=== PATIENT | female | born 1995 | race Caucasian/White ===

== ENCOUNTER 2024-07-14 10:52 | Outpatient (CLI) | payer OTHER, SELFPAY ==
--- NOTE | ~2024-07-14 | US_ITS ---
EXAMINATION: US OB <= 14 weeks fetus INDICATION: threatened miscarriage TECHNIQUE: Sonography of the pelvis was performed by transabdominal techniques. COMPARISON: None. RESULT: Uterus: 10.9 x 5.7 x 8.1 cm. Anteverted. Homogenous myometrium. Intrauterine gestational sac: Single present. Yolk sac: Not visualized. Embryo: Single present. [place] rump length: 4.3 cm, corresponding gestational age 11 weeks, 1 days. Gestational heart rate: present 171 bpm. Subgestational hematoma: Absent . Right ovary: Not visualized. No adnexal mass. Left ovary: 3.2 x 1.8 x 2.7 cm. Vascular flow is present. No adnexal mass. Pelvis free fluid: None. IMPRESSION: Single, live intrauterine gestation. tachycardia. Estimated Gestational Age: 11 weeks, 1 days by crown rump length. TYRONE by ultrasound 02/01/2025. Reviewed, dictated and finalized at location K. OPERATOR IMPRESSION: Single, live intrauterine gestation. tachycardia. Estimated Gestational Age: 11 weeks, 1 days by crown rump length. TYRONE by ultra sound 02/01/2025.
== END 2024-07-14 10:53 | disposition home or self-care (01) ==
LOC: MICIMG 10:55
PROVIDERS: Visit Provider Nurse Practitioner Women's Health
DX: O26.21 Pregnancy care for patient with recurrent pregnancy loss, first trimester (principal); Z3A.00 Weeks of gestation of pregnancy not specified
CPT/HCPCS: 76801

== ENCOUNTER 2024-11-24 07:52 | Outpatient (CLI) | payer OTHER, SELFPAY ==
--- NOTE | ~2024-11-24 | US_ITS ---
EXAMINATION: US OB follow up DATE: 11/24/2024 08:43 INDICATION: Size less than dates. TECHNIQUE: Real-time transabdominal obstetric ultrasound. FINDINGS: Comparison ultrasound dated 07/14/2024 There is a single living fetus in vertex presentation. The placenta is posterior without placenta pr evia. Cervical length 3.3 cm cardiac activity and movement is noted with a heart rate of 153 beats per minute. T he amniotic fluid volume is subjectively normal. The following biometric data were obtained: BPD: 76mm corresponds to gestational age 30 weeks 3 days. Head circumference: 279mm corresponds to gestational age 30 weeks 4 days. Abdominal circumference: 248mm corresponds to gestational age 29 weeks 0 days. Femur length: 57mm corresponds to gestational age 29 weeks 5 days. Estimated weight: 1401grams +/- 210grams, 18%.] IMPRESSION: 1. Single living fetus in presentation with an estimated gestational age of 30 weeks 1 days by init itial ultrasound. Appropriate interval growth. 2. Normal placenta. Reviewed, dictated and finalized at location B. IMPRESSION: 1. Single living fetus in presentation with an estimated gestational age of 3 0 weeks 1 days by inititial ultrasound. Appropriate interval growth. 2. Normal placenta.
== END 2024-11-24 07:53 | disposition home or self-care (01) ==
LOC: MICIMG 07:56
PROVIDERS: PCP Nurse Practitioner; Visit Provider Nurse Practitioner
DX: O36.5930 Maternal care for other known or suspected poor fetal growth, third trimester, not applicable or unspecified (principal); Z3A.00 Weeks of gestation of pregnancy not specified
CPT/HCPCS: 76816

== ENCOUNTER 2024-11-24 10:49 | Outpatient (CLI) | payer OTHER, SELFPAY ==
--- OUTSIDE RECORDS SUMMARY | 2024-11-24 10:53 | XMS_ITS | Clinical Summary ---
Author Organization [facility] Address [address] [place] [address] Phone Care Team Providers Care Coverage Specialist Name Role Phone Unavailable Primary Care Provider Unavailabl e Encounters Date Type Department Care Team Description 10/08/2024 2:30 PM CDT - 10/08/2024 11:59 PM CDT Hospital Encounter [facility] [address] [place] [id number] Sofia Hull MD Discharge Disposition: Home or Self Care 09/18/2024 External Device Data STL ABSTRACTION Provider, Abstract 09/18/2024 External Device Data STL ABSTRACTION Provider, Abstract 09/18/2024 External Device Data STL ABSTRACTION Provider, Abstract 09/13/2024 2:22 PM CDT - 09/13/2024 11:59 PM CDT Hospital Encounter [facility] [address] [place] [id number] Sofia Hull MD Discharge Disposition: Home or Self Care from Last 3 Months Social History Tobacco Use Types Packs/Day Years Used Date Smoking Tobacco: Never Assessed Comments Unknown Sex and Gender Information Value Date Recorded Sex Assigned at Not on file Legal Sex Female 9:26 AM CDT Gender Identity Not on file Sexual Orientation Not on file Plan of Treatment Health Maintenance Due Date Last Done Comments DTAP/TDAP/TD VACCINES (1 - Tdap) 12/01/2014 HEPATITIS B VACCINES (1 of 3 - 19+ 3-dose series) 12/01/2014 CERVICAL CANCER SCREENING 12/01/2016 HPV/Cotest (21-29) 12/01/2016 PAP SMEAR 12/01/2016 INFLUENZA VACCINE (#1) 2024 HPV VACCINES Aged Out No longer eligi ble based on patient's age to complete this topic Procedures Procedure Name Priority Date/Time Associated Diagnosis Comments US OB FOLLOW UP PER FETUS Routine 10/08/2024 3:12 PM CDT Family history of congenital deformity screening for malformation using ultrasonics US OB DETAIL SINGLE GEST Routine 09/13/2024 3:40 PM CDT Family history of congenital deformity screening for malformation using ultrasonics from Last 3 Months Results * US OB FOLLOW UP PER FETUS (10/08/2024 3:12 PM CDT) Anatomical Region Laterality Modality Pelvis Ultrasound 10/08/2024 2:52 PM CDT Narrative 10/10/2024 9:12 AM CDT STL FOLLOW UP ----- Pat. Name: SHARON GARCIA Study Date: 10/08/2024 2:52pm Pat. NO: [id number] Referring MD: SOFIA HULL MD Site: [facility] [employer] Operator: Tammy Rodriguez RDMS : 1995 Age: 28 ----- INDICATION ----- Screening Follow-Up Family History of Congenital Anomalies hydrocephalus prior preg Hypothyroidism levothyroxine CODING ----- Diagnoses Z3A.23: Weeks of gestation Z82.79: Family history of other congenital malformations, deformations and chromosomal abnormalities Z36.3: Encounter for screening for malformations Z3A.23: Weeks of gestation E03.9: Hypothyroidism, unspecified Z36.2: Encounter for other screening follow-up Procedures [id number]: Ultrasound, uterus, real time with image documentation, follow up, transabdominal approach per fetus HISTORY ----- OB History 2. Para 0 A1 MATERNAL ASSESSMENT ----- Physical Exam Weight 77 kg. BMI 31.09 kg/m METHOD ----- Transabdominal ultrasound examination ----- Pete . Number of fetuses: 1 DATING ----- GA by prior assessment 23 w + 3 d TYRONE by prior assessment: 02/01/2025 Ultrasound examination on: 10/08/2024 GA by U/S based upon: AC, BPD, EFW, Femur, HC GA by U/S 23 w + 1 d TYRONE by U/S: 02/03/2025 Method of dating: Restore dating from previous exam Assigned: based on stated TYRONE, selected on 09/13/2024 Assigned GA 23 w + 3 d Assigned TYRONE: 02/01/2025 BIOMETRY ----- BPD 57.5 mm 23w 4d 51% Hadlock OFD 75.2 mm 24w 6d 88% Lincoln HC 213.5 mm 23w 3d 33% Hadlock AC 176.7 mm 22w 4d 17% Hadlock Femur 40.5 mm 23w 1d 28% Hadlock HC / AC 1.21 85% Nicolaides Weight Calculation: EFW 544 g 22w 5d 20% Hadlock EFW (lb,oz) 1 lb 3 oz EFW by Hadlock ([id number]) Extremities / Bony Struc Biometry: FL / BPD 0.70 FL / HC 0.19 FL / AC 0.23 GENERAL EVALUATION ----- Cardiac activity present. FHR 148 bpm. movements: present. Presentation: cephalic Placenta: Placental site: posterior Umbilical cord: Cord vessels: 3 vessel cord Amniotic fluid: Amount of AF: normal amount. MVP 3.4 cm. KARINE 8.3 cm. Q1 0.0 cm, Q2 2.1 cm, Q3 2.8 cm, Q4 3.4 cm ANATOMY ----- The following structures appear normal: Head / Neck Cranium. Lateral ventricles. Choroid plexus. Midline falx. Cavum septi pellucidi. Cerebellum. Cisterna magna. Face Lips. Profile. Nose. Heart / Thorax 4-chamber view. RVOT view. LVOT view. 3-vessel view. Diaphragm. Abdomen Stomach. Kidneys. Bladder. GROWTH OVERVIEW ----- Exam date GA BPD (mm) HC (mm) AC (mm) FL (mm) HL (mm) EFW (g) 09/13/2024 19w 6d 44.8 36% 171.9 38% 137.5 23% 30.0 22% 28.8 35% 284 18% 10/08/2024 23w 3d 57.5 51% 213.5 33% 176.7 17% 40.5 28% 544 20% COMMENT ----- Patient's name and date of were verified by the dragline oiler prior to the exam IMPRESSION ----- 1. Single living fetus with a gestational age of 23w 3d, based on the reported clinical dates. 2. Current growth parameters are consistent with the stated EDC. The size is appropriate for gestational age at 20%percentile (544 g ). 3. Unremarkable limited anatomy noted. The previously suboptimally visualized anatomy (CSP, nose/lips, situs) appears grossly normal. The anatomic survey is now complete. 4. The amniotic fluid is normal for gestational age (MVP:3.4 cm). 5. Posterior placenta. No previa/not low-lying. Recommendations: - Further ultrasounds based on clinical indication. - Recommend interval third trimester growth and anatomy at 32 weeks. Thank you for allowing us to participate in the care of this patient. ADDENDUM ----- RETRIGGER Procedure Note Lovely Emery MD - 10/10/2024 STL FOLLOW UP ----- Pat. Name:RADHA, ANYAStudy Date:10/08/2024 2:52pm Pat. NO: [id number] MD:SOFIA HULL [facility]:Tammy BrownLaxmi BARCENAS :1995Age:28 ----- INDICATION ----- Screening Follow-Up Family History of Congenital Anomalies hydrocephalus priorpreg Hypothyroidism levothyroxine CODING ----- Diagnoses Z3A.23: Weeks of gestation Z82.79: Family history of other congenitalmalformations, deformations and chromosomal abnormalities Z36.3: Encounter for screening formalformations Z3A.23: Weeks of gestation E03.9: Hypothyroidism, unspecified Z36.2: Encounter for other screeningfollow-up Procedures [id number]: Ultrasound, uterus, real time withimage documentation, follow up, transabdominal approach per fetus HISTORY ----- OB History 2. Para 0 A1 MATERNAL ASSESSMENT ----- Physical Exam Weight 77 kg. BMI 31.09 kg/m METHOD ----- Transabdominal ultrasound examination ----- Pete . Number of fetuses: 1 DATING ----- GA by prior [id number] w + 3 d TYRONE by prior assessment:02/01/2025 Ultrasound examination on:10/08/2024 GA by U/S based upon:AC, BPD, EFW, Femur, HC GA by U/S23 w + 1 d TYRONE by U/S:02/03/2025 Method of dating:Restore dating from previous exam Assigned:based on stated TYRONE, selected on 09/13/2024 Assigned GA23 w + 3 d Assigned TYRONE:02/01/2025 BIOMETRY ----- BPD 57.5 mm 23w 4d 51%Hadlock OFD 75.2 mm 24w 6d 88%Lincoln HC 213.5 mm 23w 3d 33%Hadlock AC 176.7 mm 22w 4d 17%Hadlock Femur 40.5 mm 23w 1d 28%Hadlock HC / AC 1.21 85%Nicolaides Weight Calculation: EFW 544 g 22w 5d 20%Hadlock EFW (lb,oz) 1 lb 3 oz EFW by Hadlock ([id number]) Extremities / Bony Struc Biometry: FL / BPD 0.70 FL / HC 0.19 FL / AC 0.23 GENERAL EVALUATION ----- Cardiac activity present. FHR 148 bpm. movements: present.Presentation: cephalic Placenta: Placental site: posterior Umbilical cord: Cord vessels: 3 vessel cord Amniotic fluid: Amount of AF: normal amount. MVP 3.4 cm. KARINE 8.3 cm. Q10.0 cm, Q2 2.1 cm, Q3 2.8 cm, Q4 3.4 cm ANATOMY ----- The following structures appear normal: Head / Neck Cranium. Lateral ventricles. Choroid plexus.Midline falx. Cavum septi pellucidi. Cerebellum. Cisterna magna. Face Lips. Profile. Nose. Heart / Thorax 4-chamber view. RVOT view. LVOT view. 3-vesselview. Diaphragm. Abdomen Stomach. Kidneys. Bladder. GROWTH OVERVIEW ----- Exam date GA BPD (mm) HC (mm) AC (mm) FL(mm) HL (mm) EFW (g) 09/13/2024 19w 6d 44.8 36% 171.9 38% 137.5 23%30.0 22% 28.8 35% 284 18% 10/08/2024 23w 3d 57.5 51% 213.5 33% 176.7 17%40.5 28% 544 20% COMMENT ----- Patient's name and date of were verified by the dragline oiler prior tothe exam IMPRESSION ----- 1. Single living fetus with a gestational age of 23w 3d, based on thereported clinical dates. 2. Current growth parameters are consistent with the stated EDC. The fetalsize is appropriate for gestational age at 20%percentile (544 g ). 3. Unremarkable limited anatomy noted. The previously suboptimallyvisualized anatomy (CSP, nose/lips, situs) appears grossly normal. The anatomic survey is now complete. 4. The amniotic fluid is normal for gestational age (MVP:3.4 cm). 5. Posterior placenta. No previa/not low-lying. Recommendations: - Further ultrasounds based on clinical indication. - Recommend interval third trimester growth and anatomy at 32weeks. Thank you for allowing us to participate in the care of this patient. ADDENDUM ----- RETRIGGER us Sofia Hull MD US ORDERABLES Edited Re sult - Final * US OB DETAIL SINGLE GEST (09/13/2024 3:40 PM CDT) Anatomical Region Laterality Modality Pelvis Ultrasound 09/13/2024 2:27 PM CDT Narrative 09/13/2024 3:51 PM CDT STL COMP ----- Pat. Name: SHARON GARCIA Study Date: 09/13/2024 2:27pm Pat. NO: [id number] Referring MD: SOFIA HULL MD Site: [facility] [employer] [facility] Operator: Cesilia You RDMS : 1995 Age: 28 ----- INDICATION ----- Anatomy Survey no genetics Family History of Congenital Anomalies hydrocephalus prior preg CODING ----- Diagnoses Z3A.19: Weeks of gestation Z82.79: Family history of other congenital malformations, deformations and chromosomal abnormalities Z36.3: Encounter for screening for malformations Procedures [id number]: Ultrasound, uterus, real time with image documentation, and maternal evaluation plus detailed anatomic examination, transabdominal approach METHOD ----- Transabdominal ultrasound examination ----- Pete . Number of fetuses: 1 DATING ----- Method of dating: based on stated TYRONE GA by prior assessment 19 w + 6 d TYRONE by prior assessment: 02/01/2025 Ultrasound examination on: 09/13/2024 GA by U/S based upon: AC, BPD, EFW, Femur, HC GA by U/S 19 w + 3 d TYRONE by U/S: 02/04/2025 Assigned: based on stated TYRONE, selected on 09/13/2024 Assigned GA 19 w + 6 d Assigned TYRONE: 02/01/2025 BIOMETRY ----- BPD 44.8 mm 19w 4d 36% Hadlock OFD 60.8 mm 21w 0d 85% Lincoln HC 171.9 mm 19w 5d 38% Hadlock Cerebellum tr 19.9 mm 19w 6d 51% Hughes Nuchal fold 4.9 mm AC 137.5 mm 19w 1d 23% Hadlock Femur 30.0 mm 19w 2d 22% Hadlock Humerus 28.8 mm 19w 2d 35% Lincoln HC / AC 1.25 87% Nicolaides Weight Calculation: EFW 284 g 19w 1d 18% Hadlock EFW (lb,oz) 0 lb 10 oz EFW by Hadlock ([id number]) Head / Face / Neck Biometry: Outsewer 5.4 mm CM 4.8 mm 45% Nicolaides Outer IOD 30.0 mm 19w 3d 19% Lincoln Extremities / Bony Struc Biometry: FL / BPD 0.67 25% Hadlock FL / HC 0.17 6% Hadlock FL / AC 0.22 54% Hadlock GENERAL EVALUATION ----- Cardiac activity present. FHR 149 bpm. movements: present. Presentation: cephalic Placenta: Placental site: posterior Umbilical cord: Cord vessels: 3 vessel cord. Insertion site: placental insertion: normal Amniotic fluid: Amount of AF: normal amount. MVP 3.6 cm ANATOMY ----- The following structures appear normal: Head / Neck Cranium. Lateral ventricles. Choroid plexus. Midline falx. Cerebellum. Cisterna magna. Nuchal fold. Face Profile. Palate. Orbits. Heart / Thorax 4-chamber view. RVOT view. LVOT view. 3-vessel view. 8-oevdbd-yynyzez view. Aortic arch view. Ductal arch view. Superior vena cava. Inferior vena cava. High short axis view. Cardiac rhythm. Diaphragm. Abdomen Abdominal wall. Stomach. Kidneys. Bladder. Genitals. Spine Cervical spine. Thoracic spine. Lumbar spine. Sacral spine. Extremities / Arms. Right hand. Left hand. Legs. Right foot. Left foot. Skeleton The following structures could not be adequately visualized: Head / Neck Cavum septi pellucidi. Face Lips. Nose. Heart / Thorax other: situs suboptimal MATERNAL STRUCTURES ----- Cervix Visualized Approach - Transabdominal: Cervical length 38.8 mm Right Ovary Not visualized Left Ovary Not visualized GROWTH OVERVIEW ----- Exam date GA BPD (mm) HC (mm) AC (mm) FL (mm) HL (mm) EFW (g) 09/13/2024 19w 6d 44.8 36% 171.9 38% 137.5 23% 30.0 22% 28.8 35% 284 18% COMMENT ----- Patient's name and date of were verified by the dragline oiler before the exam IMPRESSION ----- IUP at 19w 6d AGA growth with EFW 284 g (18%) No major structural malformations are identified within the limits of ultrasound, however some views are suboptimal and thus incomplete including CSP, nose, lips, situs. No soft markers of aneuploidy are visualized. Normal amniotic fluid volume, MVP 3.6 cm Normal cervical length, 38.8 mm Placenta is posterior with no previa Recommendations: - Recommend growth and completion of anatomy in 4 weeks Procedure Note Haylie Broussard MD - 09/13/2024 STL COMP ----- Pat. Name:Girish GARCIA Date:09/13/2024 2:27pm Pat. NO: [id number] MD:SOFIA HULL [facility]:Cesilia You RDMS :1995Age:28 ----- INDICATION ----- Anatomy Survey no genetics Family History of Congenital Anomalies hydrocephalus priorpreg CODING ----- Diagnoses Z3A.19: Weeks of gestation Z82.79: Family history of other congenitalmalformations, deformations and chromosomal abnormalities Z36.3: [facility] [id number]: Ultrasound, uterus, real time withimage documentation, and maternal evaluation plus detailed anatomic examination,transabdominal approach METHOD ----- Transabdominal ultrasound examination ----- Pete . Number of fetuses: 1 DATING ----- Method of dating:based on stated TYRONE GA by prior [id number] w + 6 d TYRONE by prior assessment:02/01/2025 Ultrasound examination on:09/13/2024 GA by U/S based upon:AC, BPD, EFW, Femur, HC GA by U/S19 w + 3 d TYRONE by U/S:02/04/2025 Assigned:based on stated TYRONE, selected on 09/13/2024 Assigned GA19 w + 6 d Assigned TYRONE:02/01/2025 BIOMETRY ----- BPD 44.8 mm 19w 4d36% Hadlock OFD 60.8 mm 21w 0d85% Lincoln HC 171.9 mm 19w 5d38% Hadlock Cerebellum tr 19.9 mm 19w 6d51% Hughes Nuchal fold 4.9 mm AC 137.5 mm 19w 1d23% Hadlock Femur 30.0 mm 19w 2d22% Hadlock Humerus 28.8 mm 19w 2d35% Lincoln HC / AC 1.25 87%Nicolaides Weight Calculation: EFW 284 g 19w 1d 18%Hadlock EFW (lb,oz) 0 lb 10 oz EFW by Hadlock ([id number]) Head / Face / Neck Biometry: Outsewer 5.4 mm CM 4.8 mm 45%Nicolaides Outer IOD 30.0 mm 19w 3d 19%Lincoln Extremities / Bony Struc Biometry: FL / BPD 0.67 25%Hadlock FL / HC 0.17 6%Hadlock FL / AC 0.22 54%Hadlock GENERAL EVALUATION ----- Cardiac activity present. FHR 149 bpm. movements: present.Presentation: cephalic Placenta: Placental site: posterior Umbilical cord: Cord vessels: 3 vessel cord. Insertion site: placentalinsertion: normal Amniotic fluid: Amount of AF: normal amount. MVP 3.6 cm ANATOMY ----- The following structures appear normal: Head / Neck Cranium. Lateral ventricles. Choroid plexus.Midline falx. Cerebellum. Cisterna magna. Nuchal fold. Face Profile. Palate. Orbits. Heart / Thorax 4-chamber view. RVOT view. LVOT view. 3-vesselview. 8-cergsi-bbadpkn view. Aortic arch view. Ductal arch view. Superior vena cava. Inferior vena cava. Highshort axis view. Cardiac rhythm. Diaphragm. Abdomen Abdominal wall. Stomach. Kidneys. Bladder.Genitals. Spine Cervical spine. Thoracic spine. Lumbar spine.Sacral spine. Extremities / Arms. Right hand. Left hand. Legs. Right foot.Left foot. Skeleton The following structures could not be adequately visualized: Head / Neck Cavum septi pellucidi. Face Lips. Nose. Heart / Thorax other: situs suboptimal MATERNAL STRUCTURES ----- Cervix Visualized Approach - Transabdominal: Cervical length 38.8mm Right Ovary Not visualized Left Ovary Not visualized GROWTH OVERVIEW ----- Exam date GA BPD (mm) HC (mm) AC (mm) FL(mm) HL (mm) EFW (g) 09/13/2024 19w 6d 44.8 36% 171.9 38% 137.5 23%30.0 22% 28.8 35% 284 18% COMMENT ----- Patient's name and date of were verified by the dragline oiler beforethe exam IMPRESSION ----- IUP at 19w 6d AGA growth with EFW 284 g (18%) No major structural malformations are identified within the limitsof ultrasound, however some views are suboptimal and thus incomplete including CSP, nose, lips, situs. No softmarkers of aneuploidy are visualized. Normal amniotic fluid volume, MVP 3.6 cm Normal cervical length, 38.8 mm Placenta is posterior with no previa Recommendations: - Recommend growth and completion of anatomy in 4 weeks us Sofia Hull MD ORDERABLES Edited Re sult - Final from Last 3 Months Insurance
--- OUTSIDE RECORDS SUMMARY | 2024-11-24 10:53 | XMS_ITS | Referral Summary ---
Author Organization [facility] Address [address] [place] [address] Care Team Providers Care Ware Dresser Name Role Phone No, Physician Primary Care Provider [phone] Allergies No known active allergies Medications melatonin 5 mg tablet 5 mg Active Active Problems Problem Noted Date Diagnosed Date Bilateral wrist pain 08/22/2022 Preventative health care 08/16/2022 Assessment & Plan (08/16/2022 3:39 PM JEWELRY TECHNICIAN): Preventative health care discussed including routine vaccinations and age- appropriate screenings. Discussed continued importance of diet and physical activity. Reviewed emergency room notes can addition to initial encounter OBGYN note Medication reconciliation performed with patient. Medications, past medical history, surgical history, allergies, and family history reviewed. CBC, CMP, lipid panel ordered. Tentative plan for follow up in 1 year for annual examination. Request earlier follow-up if noting worsening palpitations. Palpitations 08/16/2022 Assessment & Plan (08/22/2022 9:31 PM CDT): Patient reporting complaints of intermittent palpitations with on essentially unremarkable cardiovascular examination. We will be ordering a Holter monitor in ordering a TSH and FT4 follow-up as scheduled. Immunizations Immunization Administration Dates Next Due Influenza, Unspecified 03/13/2022(Deferred: Apoorva ent Refused) Social History Tobacco Use Types Packs/Day Years Used Date Smoking Tobacco: Never Smokeless Tobacco: Never Alcohol Use Standard Drinks/Week Comments Not Currently 0 (1 standard drink = 0.6 oz pur e alcohol) AUDIT-C Answer Date Recorded Q1: How often do you have a drink containing alc ohol? 2-4 times a month 08/16/2022 Q2: How many drinks containi ng alcohol do you have on a typical day when you are drinking? 1 or 2 08/16/2022 Q3: How often do you have si x or more drinks on one occasion? Never 08/16/2022 PHQ-2 Answer Date Recorded PHQ-2 Total Score (If total score is 3 or more points, staff should administer the PHQ-9) 0 08/16/2022 Personal Safety Answer Date Recorded Have you ever been in or are you currently in a harmful physical or emotional relationship or is someone making you feel afraid or unsafe? Denies 02/27/2024 Comments Unknown Sex and Gender Information Value Date Recorded Sex Assigned at Not on file Legal Sex Female 2:54 PM JEWELRY TECHNICIAN Gender Identity Not on file Sexual Orientation Not on file Last Filed Vital Signs Vital Sign Reading Time Taken Comments Blood Pressure 138/90 02/27/2024 10:15 PM CDT Pulse 95 02/27/2024 10:15 PM CDT Temperature 36.9 C (98.4 F) 02/27/2024 5:16 PM CDT Respiratory Rate 18 02/27/2024 10:15 PM CDT Oxygen Saturation 100% 02/27/2024 10:15 PM CDT Inhaled Oxygen Concentration - - Weight 77.1 kg (170 lb) 02/27/2024 5:16 PM CDT Height 158 cm (5' 2.21) 08/16/2022 2:14 PM JEWELRY TECHNICIAN Body Mass Index 30.89 08/16/2022 2:14 PM JEWELRY TECHNICIAN Plan of Treatment Not on file Insurance [facility] CHOICE PLUS [id number] Care Teams Ware Dresser Relationship Specialty Start Date End Date No, Physician PCP - General 02/27/24
--- OUTSIDE RECORDS SUMMARY | 2024-11-24 10:53 | XMS_ITS | Clinical Summary ---
Author Organization [facility] Address [address] [place] [address] Care Team Providers Care Psychiatric Assistant Name Role Phone No, Physician Primary Care Provider [phone] Allergies No known active allergies Medications melatonin 5 mg tablet 5 mg Active Active Problems Problem Noted Date Diagnosed Date Bilateral wrist pain 08/22/2022 Preventative health care 08/16/2022 Assessment & Plan (08/16/2022 3:39 PM MANAGER CONTENT): Preventative health care discussed including routine vaccinations [...] Due Influenza, Unspecified 03/13/2022(Deferred: Apoorva ent Refused) Surgical History Surgery Date Site/Laterality Comments BRAIN SURGERY 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 DENTAL SURGERY Family History * Patient is adopted Medical History Relation Name Comments No Known Problems Father No Known Problems Mother Relation Name Status Comments Father Mother Social History Tobacco Use Types Packs/Day Years [...] on file Legal Sex Female 2:54 PM MANAGER CONTENT Gender Identity Not on file Sexual Orientation Not on file Obstetrics History Para Term AB IAB SAB Ectopic Multiple Livin g Live Births 1 Date Outcome GA Total Labor Labor/2nd/3rd Weight Sex Type Anes PTL Pilar A1 A5 Name Clin Last Filed Vital Signs Vital Sign Reading [...] 158 cm (5' 2.21) 08/16/2022 2:14 PM MANAGER CONTENT Body Mass Index 30.89 08/16/2022 2:14 PM MANAGER CONTENT Plan of Treatment Health Maintenance Due Date Last Done Comments Cervical Cancer Screening 1995 Hepatitis C Screening 1995 DTaP/Tdap/Td Vaccine (1 - Tdap) 12/01/2006 Varicella Vaccines (1 of 2 - 13+ 2-dose series) 12/01/2008 Hepatitis B Screening 12/01/2013 Depression Screening 08/17/2023 08/16/2022 Regular Well Visit/Exam 18-64 08/17/2023 08/16/2022 Influenza Vaccine (Season Ended) 2025 HPV Vaccines Aged Out No longer eligi ble based on patient's age to complete this topic Pneumococcal vaccine <65 Aged Out No longer eligible based on patient's age to complete this topic Insurance Care Teams Psychiatric Assistant Relationship Specialty Start Date End Date No, Physician PCP - General 02/27/24
[2024-11-24 11:12] LABS: Hemoglobin 11.1 g/dL (12.0-15.0); Mean Corpuscular HGB Conc 32.6 g/dl (32-36); Mean Corpuscular Volume 85.6 fl (80-100); Mean Platelet Volume 10.2 fl (7.4-10.4); Platelet Count Result 205 k/mm3 (150-375); Red Blood Count 3.97 M/mm3 (4.2-5.4); Red Cell Distribution Width 12.9 % (11.5-14.5); White Blood Count 8.3 K/mm3 (4.5-10.0)
[2024-11-24 11:22] LABS: Alanine Aminotransferase 19 U/L (6-35); Albumin Level 3.7 g/dL (3.5-5.1); Alkaline Phosphatase 82 U/L (38-126); Anion Gap 8 mmol/L (4-12); Aspartate Amino Transferase 27 U/L (14-36); Bilirubin,Total 0.2 mg/dL (0.2-1.3); Blood Urea Nitrogen 5 mg/dL (7-17); Calcium 9.8 mg/dL (8.4-10.2); Carbon Dioxide 22 mmol/L (22-30); Chloride 106 mmol/L (98-107); Estimated Glomerular Filt Rate > 60; Glucose 123 mg/dL (65-110); Lactate Dehydrogenase 160 U/L (120-246); Potassium 3.7 mmol/L (3.4-5.0); Sodium 136 mmol/L (137-145); Total Protein 6.9 g/dL (6.3-8.2); Uric Acid 4.1 mg/dL (2.5-7.5)
[2024-11-24 11:27] LABS: Partial Thromboplastin Time 27.2 Seconds (22.3-36.8)
== END 2024-11-24 10:50 | disposition home or self-care (01) ==
LOC: ANHLAB 10:51
PROVIDERS: Visit Provider Nurse Practitioner
DX: Z36.9 Encounter for antenatal screening, unspecified (principal)
CPT/HCPCS: 36415; 80053; 83615; 84550; 85027; 85730

== ENCOUNTER 2024-11-27 12:47 | Outpatient (CLI) | payer OTHER, SELFPAY ==
[2024-11-27 13:14] LABS: Collection Time Urine 24 HOURS
--- OUTSIDE RECORDS SUMMARY | 2024-11-27 13:15 | XMS_ITS | Clinical Summary ---
Author Organization [facility] Address [address] [place] [address] Care Team Providers Care Automotive Heavy Mechanic Name Role Phone No, Physician Primary Care Provider [phone] Allergies No known active allergies Medications melatonin 5 mg tablet 5 mg Active Active Problems Problem Noted Date Diagnosed Date Bilateral wrist pain 08/22/2022 Preventative health care 08/16/2022 Assessment & Plan (08/16/2022 3:39 PM DESIGN ENGINEER AGRICULTURAL EQUIPMENT): Preventative health care discussed including routine vaccinations [...] Site/Laterality Comments BRAIN SURGERY hydrocephalus - in [place]. As a baby. DENTAL SURGERY Family History [...] on file Legal Sex Female 2:54 PM DESIGN ENGINEER AGRICULTURAL EQUIPMENT Gender Identity Not on file Sexual Orientation [...] 158 cm (5' 2.21) 08/16/2022 2:14 PM DESIGN ENGINEER AGRICULTURAL EQUIPMENT Body Mass Index 30.89 08/16/2022 2:14 PM DESIGN ENGINEER AGRICULTURAL EQUIPMENT Plan of Treatment Health Maintenance Due Date [...] patient's age to complete this topic Insurance [facility] Address: [address] [address] [place] [address] [facility] Address: [address] [address] [place] [address] Care Teams Automotive Heavy Mechanic Relationship Specialty Start Date End Date No, Physician PCP - General 02/27/24
--- OUTSIDE RECORDS SUMMARY | 2024-11-27 13:15 | XMS_ITS | Clinical Summary ---
Author Organization [facility] Address [address] [place] [address] Phone Care Team Providers Care Balance Wheel Arm Burnisher Name Role Phone Unavailable Primary Care Provider Unavailabl e Encounters Date Type Department Care Team Description 10/08/2024 2:30 PM CDT - 10/08/2024 11:59 PM CDT Hospital Encounter [facility] [address] [place] [id number] Sofia Hull MD Discharge Disposition: Home or Self Care 09/18/2024 External Device Data STL ABSTRACTION Provider, Abstract 09/18/2024 External Device Data STL ABSTRACTION Provider, Abstract 09/18/2024 External Device Data STL ABSTRACTION Provider, Abstract 09/13/2024 2:22 PM CDT - 09/13/2024 11:59 PM CDT Hospital Encounter [facility] [address] [place] [phone] Sofia Hull MD Discharge Disposition: Home or [...] GARCIA Study Date: 10/08/2024 2:52pm Pat. NO: [id number] Referring MD: SOFIA HULL MD Site: [facility] Management Specialist: Tammy Rodriguez RDMS : 1995 Age: 28 ----- INDICATION ----- Screening Follow-Up Family History of Congenital Anomalies hydrocephalus prior preg Hypothyroidism levothyroxine CODING ----- Diagnoses Z3A.23: Weeks of gestation Z82.79: Family history of other congenital malformations, deformations and chromosomal abnormalities Z36.3: Encounter for screening for malformations Z3A.23: Weeks of gestation E03.9: Hypothyroidism, unspecified Z36.2: Encounter for other screening follow-up Procedures [id number]: Ultrasound, uterus, real time with image documentation, [...] 1 lb 3 oz EFW by Hadlock ([id number]) Extremities / Bony Struc Biometry: FL / [...] and date of were verified by the toll operator prior to the exam IMPRESSION ----- 1. [...] Pat. Name:RADHA, ANYAStudy Date:10/08/2024 2:52pm Pat. NO: [id number] MD:SOFIA HULL [facility]Tammy BrownLaxmi BARCENAS :1995Age:28 ----- INDICATION ----- Screening Follow-Up Family History of Congenital Anomalies hydrocephalus priorpreg Hypothyroidism levothyroxine CODING ----- Diagnoses Z3A.23: Weeks of gestation Z82.79: Family history of other congenitalmalformations, deformations and chromosomal abnormalities Z36.3: Encounter for screening formalformations Z3A.23: Weeks of gestation E03.9: Hypothyroidism, unspecified Z36.2: Encounter for other screeningfollow-up Procedures [id number]: Ultrasound, uterus, real time withimage documentation, follow up, transabdominal approach per fetus HISTORY ----- OB History 2. Para 0 A1 MATERNAL ASSESSMENT ----- Physical Exam Weight 77 kg. BMI 31.09 kg/m METHOD ----- Transabdominal ultrasound examination ----- Pete . Number of fetuses: 1 DATING ----- GA by prior [id number] w + 3 d TYRONE by prior [...] 1 lb 3 oz EFW by Hadlock ([id number]) Extremities / Bony Struc Biometry: FL / [...] and date of were verified by the toll operator prior tothe exam IMPRESSION ----- 1. Single [...] GARCIA Study Date: 09/13/2024 2:27pm Pat. NO: [id number] Referring MD: SOFIA HULL MD Site: [facility] Management Specialist: Cesilia You RDMS : 1995 Age: 28 ----- INDICATION ----- Anatomy Survey no genetics Family History of Congenital Anomalies hydrocephalus prior preg CODING ----- Diagnoses Z3A.19: Weeks of gestation Z82.79: Family history of other congenital malformations, deformations and chromosomal abnormalities Z36.3: Encounter for screening for malformations Procedures [id number]: Ultrasound, uterus, real time with image documentation, [...] 0 lb 10 oz EFW by Hadlock ([id number]) Head / Face / Neck Biometry: Screw Down 5.4 mm CM 4.8 mm 45% Nicolaides [...] view. RVOT view. LVOT view. 3-vessel view. 7-ggtour-zlaiomu view. Aortic arch view. Ductal arch view. [...] and date of were verified by the toll operator before the exam IMPRESSION ----- IUP at [...] Pat. Name:Girish GARCIA Date:09/13/2024 2:27pm Pat. NO: [id number] MD:SOFIA HULL MD [facility]Cesilia You RDMS :1995Age:28 ----- INDICATION ----- Anatomy Survey no genetics Family History of Congenital Anomalies hydrocephalus priorpreg CODING ----- Diagnoses Z3A.19: Weeks of gestation Z82.79: Family history of other congenitalmalformations, deformations and chromosomal abnormalities Z36.3: [id number]: Ultrasound, uterus, real time withimage documentation, and maternal evaluation plus detailed anatomic examination,transabdominal approach METHOD ----- Transabdominal ultrasound examination ----- Pete . Number of fetuses: 1 DATING ----- Method of dating:based on stated TYRONE GA by prior [id number] w + 6 d TYRONE by prior [...] 0 lb 10 oz EFW by Hadlock ([id number]) Head / Face / Neck Biometry: Screw Down 5.4 mm CM 4.8 mm 45%Nicolaides Outer [...] 4-chamber view. RVOT view. LVOT view. 3-vesselview. 7-qczbkz-rabbeyg view. Aortic arch view. Ductal arch view. [...] and date of were verified by the toll operator beforethe exam IMPRESSION ----- IUP at 19w [...]
--- OUTSIDE RECORDS SUMMARY | 2024-11-27 13:15 | XMS_ITS | Referral Summary ---
Author Organization [facility] Address [address] [place] [address] Care Team Providers Care Tool Designer Apprentice Name Role Phone No, Physician Primary Care Provider [phone] Allergies No known active allergies Medications melatonin 5 mg tablet 5 mg Active Active Problems Problem Noted Date Diagnosed Date Bilateral wrist pain 08/22/2022 Preventative health care 08/16/2022 Assessment & Plan (08/16/2022 3:39 PM BENCH INSPECTOR): Preventative health care discussed including routine vaccinations [...] on file Legal Sex Female 2:54 PM BENCH INSPECTOR Gender Identity Not on file Sexual Orientation [...] 158 cm (5' 2.21) 08/16/2022 2:14 PM BENCH INSPECTOR Body Mass Index 30.89 08/16/2022 2:14 PM BENCH INSPECTOR Plan of Treatment Not on file Insurance [facility] CHOICE PLUS [id number] Care Teams Tool Designer Apprentice Relationship Specialty Start Date End Date No, Physician PCP - General 02/27/24
--- OUTSIDE RECORDS SUMMARY | 2024-11-27 13:15 | XMS_ITS | Clinical Summary ---
Author Organization [facility] Address [address] [place] [address] Care Team Providers Care Tool And Die Maker Level Five Name Role Phone Unavailable Primary Care Provider Unavailabl e Allergies No known active allergies Medications Multiple Vitamin (MULTIVITAMIN ADULT OR) Take 1 tablet by mouth daily. Active levothyroxine (SYNTHROID) 50 MCG tablet Take 1 tablet (50 mcg total) by mouth daily. 5 Active Sbczvzwj-VjWdv-PY-D MARCOS w/o A ( + DHA OR) Take 1 tablet daily. Active ondansetron (ZOFRAN-ODT) 4 MG disintegrating tabletIndications:I nfluenza A Take 1 tablet (4 mg total) by mouth every 8 (eight) hours as needed. 10 tablet 5 Active Social History Tobacco Use Types Packs/Day Years Used Date Smoking Tobacco: Never Assessed Estimated Date of Delivery Comme nts Yes 02/01/2025 Sex and Gender Information Value Date Recorded Sex Assigned at Not on file Legal Sex Female 8:06 AM CDT Gender Identity Not on file Sexual Orientation Not on file Last Filed Vital Signs Vital Sign Reading Time Taken Comments Blood Pressure 98/65 07/17/2024 1:19 PM LONGWALL MACHINE OPERATOR HELPER Pulse 115 07/17/2024 1:19 PM LONGWALL MACHINE OPERATOR HELPER Temperature 38.7 C (101.6 F) 07/17/2024 1:19 PM LONGWALL MACHINE OPERATOR HELPER Respiratory Rate 16 07/17/2024 1:19 PM LONGWALL MACHINE OPERATOR HELPER Oxygen Saturation 98% 07/17/2024 1:19 PM LONGWALL MACHINE OPERATOR HELPER Inhaled Oxygen Concentration - - Weight 81.2 kg (179 lb) 07/17/2024 1:19 PM LONGWALL MACHINE OPERATOR HELPER Height 157.5 cm (5' 2) 07/17/2024 1:19 PM LONGWALL MACHINE OPERATOR HELPER Body Mass Index 32.74 07/17/2024 1:19 PM LONGWALL MACHINE OPERATOR HELPER Plan of Treatment Health Maintenance Due Date Last Done Comments Cervical Cancer Screening Pap Smear (Age 21 to 29) Every 3 Years 1995 Cervical Cancer Screening 1995 Annual Physical 12/01/1998 Hepatitis C 12/01/2013 DTaP, Tdap and Td Vaccines (7 - Td or Tdap) 04/21/2021 04/21/2011, 10/08/2002, 10/08/2001, Additional history exists COVID-19 Vaccine ( season) 2024 PHQ-2 (Physician [place]) 06/13/2024 Hepatitis B Vaccines Completed 07/31/2004, 01/24/2004, 10/08/2002 Meningococcal Vaccine Aged Out 12/16/2011 No cleo mami eligible based on patient's age to complete this topic HPV Vaccines Aged Out No longer eligi ble based on patient's age to complete this topic Meningococcal B Vaccine Aged Out No l onger eligible based on patient's age to complete this topic Pneumococcal Vaccine: Pediatrics (0 to 5 Years) and At-Risk Patients (6 to 49 Years) Aged Out No longer eligible based on patient's age to complete this topic RSV Immunization or 60+ Years (No Doses Required) Completed RSV Immunizations Under 20 Months Aged Out No longer eligible based on patient's age to complete this topic Insurance
[2024-11-27 14:07] LABS: Creatinine Urine 81.5 mg/dL; Patient Weight 184 Lbs; Serum Creat 0.59; Total Protein Urine Random 10 mg/dL
[2024-11-27 14:10] LABS: Estimated Glomerular Filt Rate > 60
[2024-11-27 14:23] LABS: Free T4 Free Thyroxine 0.73 ng/dL (0.78-2.19); Vitamin D 25 Hydroxy 41.5 ng/mL
[2024-11-27 14:34] LABS: Syphilis IgG/IgM Antibody Non-Reactive (Nonreactive)
[2024-11-27 14:36] LABS: HIV 1/2 Ab P24 Ag Result Negative (Negative)
[2024-11-27 15:36] LABS: Creatinine Clearance Urine 99.3 ml/min (75-125); Total Protein Urine 24 Hr 110 mg/24hr (28-141); Total Volume 24 Hour Urine 1100 ml
== END 2024-11-27 12:48 | disposition home or self-care (01) ==
LOC: ANHLAB 12:50
PROVIDERS: Visit Provider Obstetrics & Gynecology Gynecology
DX: O13.4 Gestational [pregnancy-induced] hypertension without significant proteinuria, complicating childbirth (principal); O99.280 Endocrine, nutritional and metabolic diseases complicating pregnancy, unspecified trimester; Z3A.00 Weeks of gestation of pregnancy not specified
CPT/HCPCS: 36415; 81050; 82306; 82565; 82575; 84156; 84439; 84443; 84550; 86593; 86703; G0432

== ENCOUNTER 2024-12-18 07:45 | Outpatient (CLI) | payer OTHER, SELFPAY ==
--- OUTSIDE RECORDS SUMMARY | 2024-12-18 07:49 | XMS_ITS | Clinical Summary ---
Author Organization [facility] Address [address] [place] [address] Care Team Providers Care Italian Lecturer Name Role Phone Unavailable Primary Care Provider Unavailabl e Allergies No known active allergies Medications Multiple Vitamin (MULTIVITAMIN ADULT OR) Take 1 tablet by mouth daily. Active levothyroxine (SYNTHROID) 50 MCG tablet Take 1 tablet (50 mcg total) by mouth daily. 5 Active Niujvymy-KtIyv-PK-D MARCOS w/o A ( + DHA OR) [...] Comments Blood Pressure 98/65 07/17/2024 1:19 PM CONVEYOR MAN Pulse 115 07/17/2024 1:19 PM CONVEYOR MAN Temperature 38.7 C (101.6 F) 07/17/2024 1:19 PM CONVEYOR MAN Respiratory Rate 16 07/17/2024 1:19 PM CONVEYOR MAN Oxygen Saturation 98% 07/17/2024 1:19 PM CONVEYOR MAN Inhaled Oxygen Concentration - - Weight 81.2 kg (179 lb) 07/17/2024 1:19 PM CONVEYOR MAN Height 157.5 cm (5' 2) 07/17/2024 1:19 PM CONVEYOR MAN Body Mass Index 32.74 07/17/2024 1:19 PM CONVEYOR MAN Plan of Treatment Health Maintenance Due Date Last Done Comments Cervical Cancer Screening Pap Smear (Age 21 to 29) Every 3 Years 1995 Cervical Cancer Screening 1995 Annual Physical 12/01/1998 Hepatitis C 12/01/2013 DTaP, Tdap and Td Vaccines (7 - Td or Tdap) 04/21/2021 04/21/2011, 10/08/2002, 10/08/2001, Additional history exists COVID-19 Vaccine ( season) 2024 PHQ-2 (Physician [place]) 06/13/2024 Hepatitis B Vaccines Completed 07/31/2004, 01/24/2004, [...]
--- OUTSIDE RECORDS SUMMARY | 2024-12-18 07:49 | XMS_ITS | Referral Summary ---
Author Organization [facility] Address [address] [place] [address] Care Team Providers Care Heavy Equipment Operating Engineer Name Role Phone No, Physician Primary Care Provider [phone] Allergies No known active allergies Medications melatonin 5 mg tablet 5 mg Active Active Problems Problem Noted Date Diagnosed Date Bilateral wrist pain 08/22/2022 Preventative health care 08/16/2022 Assessment & Plan (08/16/2022 3:39 PM PUBLICATIONS PRODUCTION SUPERVISOR): Preventative health care discussed including routine vaccinations [...] on file Legal Sex Female 2:54 PM PUBLICATIONS PRODUCTION SUPERVISOR Gender Identity Not on file Sexual Orientation [...] 158 cm (5' 2.21) 08/16/2022 2:14 PM PUBLICATIONS PRODUCTION SUPERVISOR Body Mass Index 30.89 08/16/2022 2:14 PM PUBLICATIONS PRODUCTION SUPERVISOR Plan of Treatment Not on file Insurance [facility] CHO[facility] PLUS [id number] Care Teams Heavy Equipment Operating Engineer Relationship Specialty Start Date End Date No, Physician PCP - General 02/27/24
--- OUTSIDE RECORDS SUMMARY | 2024-12-18 07:49 | XMS_ITS | Clinical Summary ---
Author Organization [facility] Address [address] [place] [address] Care Team Providers Care Naval Aircrewman Tactical Helicopter Name Role Phone No, Physician Primary Care Provider [phone] Allergies No known active allergies Medications melatonin 5 mg tablet 5 mg Active Active Problems Problem Noted Date Diagnosed Date Bilateral wrist pain 08/22/2022 Preventative health care 08/16/2022 Assessment & Plan (08/16/2022 3:39 PM BOILERMAKING SUPERVISOR): Preventative health care discussed including routine [...] Site/Laterality Comments BRAIN SURGERY hydrocephalus - in [place]. As a baby. DENTAL SURGERY Family History [...] on file Legal Sex Female 2:54 PM BOILERMAKING SUPERVISOR Gender Identity Not on file Sexual [...] 158 cm (5' 2.21) 08/16/2022 2:14 PM BOILERMAKING SUPERVISOR Body Mass Index 30.89 08/16/2022 2:14 PM BOILERMAKING SUPERVISOR Plan of Treatment Health Maintenance Due Date Last Done Comments Cervical Cancer Screening 1995 Hepatitis C Screening 1995 DTaP/Tdap/Td Vaccine (1 - Tdap) 12/01/2006 Varicella Vaccines (1 of 2 - 13+ 2-dose series) 12/01/2008 Hepatitis B Screening 12/01/2013 Depression Screening 08/17/2023 08/16/2022 Regular Well Visit/Exam 18-64 08/17/2023 08/16/2022 Influenza Vaccine (#1) 2025 HPV Vaccines Aged Out No longer eligi ble based on patient's age to complete this topic Pneumococcal vaccine <65 Aged Out No longer eligible based on patient's age to complete this topic Insurance [facility]/PPO Address: [address] [address] [place] [address] [facility] HMO/PPO Address: [address] [address] [place] [address] Care Teams Naval Aircrewman Tactical Helicopter Relationship Specialty Start Date End Date No, Physician PCP - General 02/27/24
--- OUTSIDE RECORDS SUMMARY | 2024-12-18 07:49 | XMS_ITS | Clinical Summary ---
Author Organization [facility] Address [address] [place] [address] Phone Care Team Providers Care Global Marketing Coordinator Name Role Phone Unavailable Primary Care Provider Unavailabl e Encounters Date Type Department Care Team Description 12/11/2024 External Device Data STL ABSTRACTION Provider, Abstract 10/08/2024 2:30 PM CDT - 10/08/2024 11:59 PM CDT Hospital Encounter [facility] [address] [place] [address] Sofia Hull MD Discharge Disposition: Home or Self Care 09/18/2024 External Device Data STL ABSTRACTION Provider, Abstract 09/18/2024 External Device Data STL ABSTRACTION Provider, Abstract 09/18/2024 External Device Data STL ABSTRACTION Provider, Abstract from Last 3 Months Social History Tobacco [...] 12/01/2016 PAP SMEAR 12/01/2016 INFLUENZA VACCINE (#1) 2025 HPV VACCINES Aged Out No longer eligi [...] GARCIA Study Date: 10/08/2024 2:52pm Pat. NO: [id number] Referring MD: SOFIA HULL MD Site: [place] Nozzle Operator: Tammy Rodriguez RDMS : 1995 Age: 28 ----- INDICATION ----- Screening Follow-Up Family History of Congenital Anomalies hydrocephalus prior preg Hypothyroidism levothyroxine CODING ----- Diagnoses Z3A.23: Weeks of gestation Z82.79: Family history of other congenital malformations, deformations and chromosomal abnormalities Z36.3: Encounter for screening for malformations Z3A.23: Weeks of gestation E03.9: Hypothyroidism, unspecified Z36.2: Encounter for other screening follow-up Procedures [id number]: Ultrasound, uterus, real time with image documentation, [...] 1 lb 3 oz EFW by Hadlock ([id number]) Extremities / Bony Struc Biometry: FL / [...] and date of were verified by the bailer operators supervisor prior to the exam IMPRESSION ----- 1. [...] - 10/10/2024 STL FOLLOW UP ----- Pat. Name:Girish GARCIA Date:10/08/2024 2:52pm Pat. NO: [id number] MD:SOFIA HULL MD [facility]Tammy Rodriguez RDMS :1995Age:28 ----- INDICATION ----- Screening Follow-Up Family History of Congenital Anomalies hydrocephalus priorpreg Hypothyroidism levothyroxine CODING ----- Diagnoses Z3A.23: Weeks of gestation Z82.79: Family history of other congenitalmalformations, deformations and chromosomal abnormalities Z36.3: Encounter for screening formalformations Z3A.23: Weeks of gestation E03.9: Hypothyroidism, unspecified Z36.2: Encounter for other screeningfollow-up Procedures 12668: Ultrasound, uterus, real time withimage documentation, follow up, transabdominal approach per fetus HISTORY ----- OB History 2. Para 0 A1 MATERNAL ASSESSMENT ----- Physical Exam Weight 77 kg. BMI 31.09 kg/m METHOD ----- Transabdominal ultrasound examination ----- Pete . Number of fetuses: 1 DATING ----- GA by prior [id number] w + 3 d TYRONE by prior [...] 1 lb 3 oz EFW by Hadlock ([id number]) Extremities / Bony Struc Biometry: FL / [...] and date of were verified by the bailer operators supervisor prior tothe exam IMPRESSION ----- 1. Single [...] care of this patient. ADDENDUM ----- RETRIGGER Sofia Hull MD ORDERABLES Edited Re sult - Final from Last 3 Months Insurance [employer] [id number]
[2024-12-18 09:52] LABS: Glucose 1 Hour PP 50gm Dose 171 mg/dL
== END 2024-12-18 07:46 | disposition home or self-care (01) ==
LOC: ANHLAB 07:47
PROVIDERS: Visit Provider Obstetrics & Gynecology Gynecology
DX: E03.9 Hypothyroidism, unspecified (principal); O13.4 Gestational [pregnancy-induced] hypertension without significant proteinuria, complicating childbirth; Z3A.00 Weeks of gestation of pregnancy not specified
CPT/HCPCS: 36415; 82947

== ENCOUNTER 2024-12-25 07:55 | Outpatient (CLI) | payer OTHER, SELFPAY ==
--- OUTSIDE RECORDS SUMMARY | 2024-12-25 08:01 | XMS_ITS | Clinical Summary ---
Author Organization [facility] Address [address] [place] [address] Phone Care Team Providers Care Customs Examiner Name Role Phone Unavailable Primary Care Provider Unavailabl e Encounters Date Type Department Care Team Description 12/11/2024 External Device Data STL ABSTRACTION Provider, Abstract 10/08/2024 2:30 PM CDT - 10/08/2024 11:59 PM CDT Hospital Encounter [facility] [place] [address] [place] [address] Sofia Hull MD Discharge Disposition: [...] GARCIA Study Date: 10/08/2024 2:52pm Pat. NO: [id number] Referring MD: SOFIA HULL MD Site: [place] Ota: Tammy Rodriguez RDMS : 1995 Age: 28 ----- INDICATION ----- Screening Follow-Up Family History of Congenital Anomalies hydrocephalus prior preg Hypothyroidism levothyroxine CODING ----- Diagnoses Z3A.23: Weeks of gestation Z82.79: Family history of other congenital malformations, deformations and chromosomal abnormalities Z36.3: Encounter for screening for malformations Z3A.23: Weeks of gestation E03.9: Hypothyroidism, unspecified Z36.2: Encounter for other screening follow-up Procedures [id number]: Ultrasound, uterus, real time with image documentation, [...] 1 lb 3 oz EFW by Hadlock ([id number]) Extremities / Bony Struc Biometry: FL / [...] and date of were verified by the home care music therapist prior to the exam IMPRESSION ----- 1. [...] Pat. Name:RADHA, ANYAStudy Date:10/08/2024 2:52pm Pat. NO: [id number] MD:SOFIA HULL MD [facility]am[facility] RDMS :1995Age:28 ----- INDICATION ----- Screening Follow-Up Family History of Congenital Anomalies hydrocephalus priorpreg Hypothyroidism levothyroxine CODING ----- Diagnoses Z3A.23: Weeks of gestation Z82.79: Family history of other congenitalmalformations, deformations and chromosomal abnormalities Z36.3: Encounter for screening formalformations Z3A.23: Weeks of gestation E03.9: Hypothyroidism, unspecified Z36.2: Encounter for other screeningfollow-up Procedures [id number]: Ultrasound, uterus, real time withimage documentation, follow up, transabdominal approach per fetus HISTORY ----- OB History 2. Para 0 A1 MATERNAL ASSESSMENT ----- Physical Exam Weight 77 kg. BMI 31.09 kg/m METHOD ----- Transabdominal ultrasound examination ----- Pete . Number of fetuses: 1 DATING ----- GA by prior [id number] w + 3 d TYRONE by prior [...] 1 lb 3 oz EFW by Hadlock ([id number]) Extremities / Bony Struc Biometry: FL / [...] and date of were verified by the home care music therapist prior tothe exam IMPRESSION ----- 1. Single [...] - Final from Last 3 Months Insurance Secured Mail [facility] [id number] [facility] Address: [facility] [id number] [place] [address]
--- OUTSIDE RECORDS SUMMARY | 2024-12-25 08:01 | XMS_ITS | Clinical Summary ---
Author Organization [facility] Address [address] [place] [address] Care Team Providers Care Straddle Truck Driver Name Role Phone No, Physician Primary Care Provider [phone] Allergies No known active allergies Medications melatonin 5 mg tablet 5 mg Active Active Problems Problem Noted Date Diagnosed Date Bilateral wrist pain 08/22/2022 Preventative health care 08/16/2022 Assessment & Plan (08/16/2022 3:39 PM VP COMMUNICATIONS): Preventative health care discussed including routine vaccinations [...] Site/Laterality Comments BRAIN SURGERY hydrocephalus - in [place]. As a baby. DENTAL SURGERY Family History [...] on file Legal Sex Female 2:54 PM VP COMMUNICATIONS Gender Identity Not on file Sexual Orientation [...] 158 cm (5' 2.21) 08/16/2022 2:14 PM VP COMMUNICATIONS Body Mass Index 30.89 08/16/2022 2:14 PM VP COMMUNICATIONS Plan of Treatment Health Maintenance Due Date [...] to complete this topic Insurance Care Teams Straddle Truck Driver Relationship Specialty Start Date End Date No, Physician PCP - General 02/27/24
--- OUTSIDE RECORDS SUMMARY | 2024-12-25 08:01 | XMS_ITS | Referral Summary ---
Author Organization [facility] Address [address] [place] [address] Care Team Providers Care Repairer Switchgear Name Role Phone No, Physician Primary Care Provider [phone] Allergies No known active allergies Medications melatonin 5 mg tablet 5 mg Active Active Problems Problem Noted Date Diagnosed Date Bilateral wrist pain 08/22/2022 Preventative health care 08/16/2022 Assessment & Plan (08/16/2022 3:39 PM FISHER CRAB): Preventative health care discussed including routine vaccinations [...] on file Legal Sex Female 2:54 PM FISHER CRAB Gender Identity Not on file Sexual Orientation [...] 158 cm (5' 2.21) 08/16/2022 2:14 PM FISHER CRAB Body Mass Index 30.89 08/16/2022 2:14 PM FISHER CRAB Plan of Treatment Not on file Insurance [facility] Address: [address] [place] [address] [facility] Address: [address] [address] [place] [address] [id number] Care Teams Repairer Switchgear Relationship Specialty Start Date End Date No, Physician PCP - General 02/27/24
--- OUTSIDE RECORDS SUMMARY | 2024-12-25 08:01 | XMS_ITS | Clinical Summary ---
Author Organization [facility] Address [address] [place] [address] Care Team Providers Care Spool Cleaner Name Role Phone Unavailable Primary Care Provider Unavailabl e Allergies No known active allergies Medications Multiple Vitamin (MULTIVITAMIN ADULT OR) Take 1 tablet by mouth daily. Active levothyroxine (SYNTHROID) 50 MCG tablet Take 1 tablet (50 mcg total) by mouth daily. 5 Active Zuqftbmj-[id number]-LU-D MARCOS w/o A ( + DHA OR) [...] Comments Blood Pressure 98/65 07/17/2024 1:19 PM HUMANITIES DEPARTMENT CHAIR Pulse 115 07/17/2024 1:19 PM HUMANITIES DEPARTMENT CHAIR Temperature 38.7 C (101.6 F) 07/17/2024 1:19 PM HUMANITIES DEPARTMENT CHAIR Respiratory Rate 16 07/17/2024 1:19 PM HUMANITIES DEPARTMENT CHAIR Oxygen Saturation 98% 07/17/2024 1:19 PM HUMANITIES DEPARTMENT CHAIR Inhaled Oxygen Concentration - - Weight 81.2 kg (179 lb) 07/17/2024 1:19 PM HUMANITIES DEPARTMENT CHAIR Height 157.5 cm (5' 2) 07/17/2024 1:19 PM HUMANITIES DEPARTMENT CHAIR Body Mass Index 32.74 07/17/2024 1:19 PM HUMANITIES DEPARTMENT CHAIR Plan of Treatment Health Maintenance Due Date Last Done Comments Cervical Cancer Screening Pap Smear (Age 21 to 29) Every 3 Years 1995 Cervical Cancer Screening 1995 Annual Physical 12/01/1998 Hepatitis C 12/01/2013 DTaP, Tdap and Td Vaccines (7 - Td or Tdap) 04/21/2021 04/21/2011, 10/08/2002, 10/08/2001, Additional history exists COVID-19 Vaccine ( season) 2024 PHQ-2 (Physician [place]) 06/13/2024 Hepatitis B Vaccines Completed 07/31/2004, 01/24/2004, [...] patient's age to complete [place] [id number]
[2024-12-25 08:22] LABS: Glucose Fasting Gestational 88 mg/dL (>/=95)
[2024-12-25 10:27] LABS: Glucose 1 Hour Gest 174 mg/dL (>/=180)
[2024-12-25 11:01] LABS: Glucose 2 Hour Gest 173 mg/dL (>/= 155)
[2024-12-25 12:15] LABS: Glucose 3 Hour Gest 144 mg/dL (>/=140)
== END 2024-12-25 07:56 | disposition home or self-care (01) ==
LOC: ANHLAB 07:56
PROVIDERS: Visit Provider Obstetrics & Gynecology Gynecology
DX: Z34.03 Encounter for supervision of normal first pregnancy, third trimester (principal)
CPT/HCPCS: 36415; 82951; 82952

== ENCOUNTER 2025-01-29 05:58 | Inpatient (IN) | payer OTHER, SELFPAY ==
[2025-01-29] VITALS (122 sets, daily range): BP systolic 92–145; BP diastolic 48–93; PULSE 68–135; RESP 16; TEMP 36.1–36.8; O2SAT 92–100; BMI 33.5
--- OUTSIDE RECORDS SUMMARY | 2025-01-29 06:01 | XMS_ITS | Clinical Summary ---
Author Organization [facility] Address [address] [place] [address] Phone Care Team Providers Care Rn Procedure Name Role Phone Unavailable Primary Care Provider Unavailabl e Encounters Date Type Department Care Team Description 01/16/2025 External Device Data [facility] ABSTRACTION Provider, Abstract 01/15/2025 External Device Data [facility] ABSTRACTION Provider, Abstract 12/11/2024 External Device Data [facility] ABSTRACTION Provider, [...] Health Maintenance Due Date Last Done Comments HPV VACCINES (1 - 3-dose series) 12/01/2010 DTAP/TDAP/TD VACCINES (1 - Tdap) 12/01/2014 HEPATITIS B VACCINES (1 of 3 - 19+ 3-dose series) 11/12 CERVICAL CANCER SCREENING 12/01/2016 HPV/Cotest (21-29) 12/01/2016 PAP SMEAR 12/01/2016 INFLUENZA VACCINE (#1) 2025 Insurance [employer] [id number] Member Subscriber Plan / Payer (Ef fective 2024-Present) Name:Vanessa Velazquez Relation to Subscriber:Self Name:Vanessa Velazquez Payer ID:[id number] (NAIC) Type:HMO Address: [facility] [address] [place] [id number]
--- OUTSIDE RECORDS SUMMARY | 2025-01-29 06:01 | XMS_ITS | Clinical Summary ---
Author Organization [facility] Address [address] [place] [address] Care Team Providers Care Environmental Engineering Assistant Name Role Phone No, Physician Primary Care Provider [phone] Allergies No known active allergies Medications melatonin 5 mg tablet 5 mg Active Active Problems Problem Noted Date Diagnosed Date Bilateral wrist pain 08/22/2022 Preventative health care 08/16/2022 Assessment & Plan (08/16/2022 3:39 PM MEDICAL DRIVER): Preventative health care discussed including routine vaccinations [...] Site/Laterality Comments BRAIN SURGERY hydrocephalus - in [place]. As a baby. DENTAL SURGERY Family History [...] on file Legal Sex Female 2:54 PM MEDICAL DRIVER Gender Identity Not on file Sexual Orientation [...] 158 cm (5' 2.21) 08/16/2022 2:14 PM MEDICAL DRIVER Body Mass Index 30.89 08/16/2022 2:14 PM MEDICAL DRIVER Plan of Treatment Health Maintenance Due Date Last Done Comments Cervical Cancer Screening 1995 Hepatitis C Screening 1995 DTaP/Tdap/Td Vaccine (1 - Tdap) 12/01/2006 Varicella Vaccines (1 of 2 - 13+ 2-dose series) 12/01/2008 Hepatitis B Screening 12/01/2013 HPV Vaccines (1 - 3-dose SCD M series) 12/01/2022 Depression Screening 08/17/2023 08/16/2022 Regular Well Visit/Exam 18-64 08/17/2023 08/16/2022 Influenza Vaccine (#1) 2025 Pneumococcal vaccine <65 Aged Out No longer eligible based on patient's age to complete this topic Insurance [facility] HMO/PPO Address: [address] [address] [place] [address] [facility]/PP[facility] Address: [address] [address] [place] [address] [address] [place] [phone] Care Teams Environmental Engineering Assistant Relationship Specialty Start Date End Date No, Physician PCP - General 02/27/24
--- NOTE | 2025-01-29 06:36 | LDADM ---
This patient, Vanessa Velazquez, was admitted to Labor/Delivery/Recovery 102 on 01/29/25 at 05:58. Plans for labor, pain management and were discussed with patient. Patient/family oriented to hospital policies and general routines including ID bracelet, bed and alarms, visiting hours, pain management, procedures, bathroom and other care routines, personal items, smoking policy, room service/diet and guest tray routines, security routines, and visiting hours. Patient/Family are encouraged to report perceived risks to care and to ask questions if they do not understand what they are told or what they should do. See OBIX for further documentation.
[2025-01-29] MEDS: LACTATED RINGERS 1,000 ML 125 ML IV CONT ×2 (07:15→13:20)
[2025-01-29] MEDS: OXYTOCIN 30 UNITS/NS 500 ML 30 UNITS/500 ML BAG 6 UNITS IV CONT (07:15)
[2025-01-29 07:26] LABS: Hematocrit 31.8 % (37.0-47.0); Hemoglobin 10.2 g/dL (12.0-15.0); Immature Granulocyte Percent A 0.6 % (0-0.5); Lymphocytes Absolute Auto 1.02 K/mm3 (0.9-3.2); Mean Corpuscular HGB Conc 32.1 g/dl (32-36); Mean Corpuscular Hemoglobin 25.8 pg (26-34); Mean Corpuscular Volume 80.3 fl (80-100); Nucleated Red Blood Cells Absolute Auto 0.000 K/mm3 (0.0-0.012); Nucleated Red Blood Cells Perc 0.0 % (0.0-0.2); Platelet Count Result 193 k/mm3 (150-375); Red Blood Count 3.96 M/mm3 (4.2-5.4); White Blood Count 6.9 K/mm3 (4.5-10.0)
--- NOTE | 2025-01-29 07:50 | WPDOBADMIT ---
Obstetrics - Admit Note Admission Note: record reviewed. No pertinent additions to the history and/or any subsequent changes in the physical findings that are not consistent with the expected course of the were found. Additions to the history and/or subsequent changes in the physical findings follow. Here for MIL for GDM. Uncertain diabetes control due to only having one week of accucheck readings. Cervix 2/50/-2 anterior. AROM with clear fluid. FHTs category I. Pitocin per protocol.
[2025-01-29 08:31] LABS: Syphilis IgG/IgM Antibody Non-Reactive (Nonreactive)
[2025-01-29] MEDS: fentaNYL CITRATE INJ (*CRX) 100 MCG/2 ML VIAL 50 MCG IV PUSH ×2 (12:25→13:48)
--- NOTE | 2025-01-29 14:11 | WPDANESEPPF ---
Anes - Initial Pre Proc Eval Procedure: labor epidural Date/Time: 01/29/25 14:11 Surgeon: Sofia Hull MD Pre Op Diagnosis: labor pain Pre Op Diagnosis: IOL Patient Data Age: 29 Gender: F Height: 1.6 m Weight: 86 kg Last Vital Signs Temp 36.3 C L 01/29/25 12:00 Pulse 95 01/29/25 14:09 BP 136/67 01/29/25 14:09 Pulse Ox 100 01/29/25 14:07 O2 Del Method Room Air 01/29/25 06:35 Allergies Allergy/AdvReac Type Severity Reaction Status Date / Time No Known Allergies Allergy Verified 01/05/25 14:50 Home Medications ?Medication ?Instructions ?Recorded ?Confirmed ?Type levothyroxine 75 mcg tablet 75 mcg PO ONCE 01/05/25 01/29/25 History (Euthyrox) vit no.95-ferrous 1 tablet PO DAILY 01/05/25 01/29/25 History fumarate 28 mg-folic acid 800 mcg tablet () vitamin D3 20 mcg-vit K2 180 tablet PO 01/05/25 History mcg-calcium fructoborate 216 mg tablet Laboratory Tests 01/29/25 01/29/25 01/29/25 06:41 07:05 10:41 WBC 6.9 K/mm3 (4.5-10.0) RBC 3.96 L M/mm3 (4.2-5.4) Hgb 10.2 L g/dL (12.0-15.0) Hct 31.8 L % (37.0-47.0) MCV 80.3 fl (80-100) MCH 25.8 L pg (26-34) MCHC 32.1 g/dl (32-36) RDW 14.3 % (11.5-14.5) Plt Count 193 k/mm3 (150-375) MPV 11.2 H fl (7.4-10.4) Immature Gran % (Auto) 0.6 H % (0-0.5) Neut % (Auto) 76.1 H % (45.5-73.1) Lymph % (Auto) 14.8 L % (18.3-44.2) [place] % (Auto) 8.1 % (2.6-8.5) Eos % (Auto) 0.3 % (0-4.4) Baso % (Auto) 0.1 L % (0.2-1.2) Lymph # (Auto) 1.02 K/mm3 (0.9-3.2) [place] # (Auto) 0.6 K/mm3 (0.1-0.6) Eos # (Auto) 0.0 K/mm3 (0-0.3) Baso # (Auto) 0.0 K/mm3 (0.0-0.1) Abs Immat Gran (auto) 0.04 H K/mm3 (0.00-0.031) Absolute Neuts (auto) 5.3 K/mm3 (1.3-6.7) Absolute Nucleated RBC 0.000 K/mm3 (0.0-0.012) Nucleated RBC % 0.0 % (0.0-0.2) POC Capillary Glucose 81 mg/dl 112 H mg/dl (65-105) (65-105) Syphilis IgG/IgM Ab Non-reactive (Nonreactive) Blood Type O Positive Antibody Screen Negative Patient hx anesthesia problems: none Family hx anesthesia problems: none Results Review: All pre-operative results and documents have been reviewed as part of the pre-operative evaluation. [facility] Past Medical History Medical History (Updated 01/29/25 @ 14:11 by Kojo Velez DO) PIH ( induced hypertension) Surgical History Surgical History (Updated 01/29/25 @ 14:11 by Kojo Velez DO) S/P MERCHANDISE CLERK shunt as baby Social History Social History Smoking status: Never smoker Second hand tobacco smoke exposure: No Substance use: never Lack of Transportation: No Lack of Food: Never True Current Housing: I Have Housing Concerned About Future Housing: No Difficulty Paying Gas/Electric Bills: No Difficulty Paying for Meds: No Currently Unemployed: No Education: High School Diploma/GED Difficulty w/ Childcare or Family Care: No Spiritual care concerns: No Anes - Eval Final PreProcedure Day of Procedure 01/29/25 14:11 Patient weight: obese Neurological: alert and oriented ASA classification: III Emergent: no Anesthetic plan: proceed Anesthesia type and monitoring: regional epidural and standard monitoring Results Review: All pre-operative results and documents have been reviewed as part of the pre-operative evaluation. Informed Consent: The patient's anesthetic plan and its attendant risks and benefits were discussed with the patient/family/POA. Questions were solicited and answers provided to the satisfaction of the patient/family/POA.
[2025-01-29] MEDS: OXYTOCIN 30 UNITS/NS 500 ML 30 UNITS/500 ML BAG 125 UNITS IV CONT (16:31)
--- NOTE | 2025-01-29 17:35 | PC.NURSE ---
Nursery RN requests assistance with latching baby. Mom has fed for 8-10 minutes on the right breast. Baby is alert and active but fussy. Mom's left nipple is inverted, but it will irving with stimulation. The nipple retracts with breast compression. We worked to latch baby to the breast for several minutes. We tried cradle, cross cradle, and laid back positioning. Baby made good effort to latch but was quick to cry and hard to settle. Mom would like to take a break for now and do skin to skin with baby. She is encouraged to attempt again if he begins searching for the breast. Feeding cues discussed. Primary RN updated.
[2025-01-29] MEDS: BENZOCAINE 20% AER SPR (*SP) 56 GM CAN 1 SPRAY TOPICAL (19:14)
[2025-01-29] MEDS: WITCH HAZEL 40 PADS 1 PAD TOPICAL (19:14)
--- NOTE | 2025-01-29 19:35 | OBPPTRN ---
Patient transferred to post room # 288 via wheelchair. Support person present. Oriented to unit, room, information board, rooming in, admission packet and security measures. Patient verbalizes understanding.
[2025-01-30 05:09] LABS: Hematocrit 27.4 % (37.0-47.0); Hemoglobin 8.6 g/dL (12.0-15.0)
--- NOTE | 2025-01-30 07:31 | P.PNOB_ITS ---
OB - PN: Subj Subjective Date/time seen: 01/30/25 07:31 Patient comments: no complaints and pain well controlled baby status: doing well and nursing well OB - PN: Obj Data Labs 01/30/25 03:56 Labs: Laboratory Results - last 24 hr 01/29/25 01/29/25 01/30/25 06:41 10:41 03:56 Hgb 8.6 L Hct 27.4 L POC Capillary Glucose 112 H Syphilis IgG/IgM Ab Non-reactive Blood Type O Positive Antibody Screen Negative OB - PN A/P Plan day: 1 Plan: routine care Time Spent With Patient Time: Total time spent is greater than 50% in coordination of care (as documented) at patient's floor/unit and/or counseling patient: Exam 2 : Bimanual exam- vagina & uterus: other (Uterus firm, nt @U)
[2025-01-30 07:35] VITALS: BP 140/86; PULSE 100; RESP 16; TEMP 37.3; O2SAT 98
[2025-01-30] MEDS: DOCUSATE SODIUM 100 MG CAPSULE PO ×2 (08:00→17:33)
[2025-01-30] MEDS: MULTIVIT/MIN/PREN/FOL AC/IRON TABLET 1 TAB PO (08:00)
[2025-01-30] MEDS: IBUPROFEN 600 MG TABLET PO ×2 (10:18→20:08)
[2025-01-30 11:54] VITALS: BP 123/83; PULSE 92; RESP 18; TEMP 37.2; O2SAT 98
[2025-01-30 20:00] VITALS: BP 123/84; PULSE 100; RESP 16; TEMP 36.8; O2SAT 100
[2025-01-30] MEDS: ACETAMINOPHEN 325 MG TABLET 650 MG PO (20:08)
[2025-01-31 07:35] VITALS: BP 121/85; PULSE 78; RESP 18; TEMP 37.1; O2SAT 99
--- NOTE | 2025-01-31 07:55 | P.PNOB_ITS ---
OB - PN: Subj Subjective Date/time seen: 01/31/25 07:55 Patient comments: no complaints, pain well controlled and other (Plans oc's) baby status: doing well OB - PN: Obj Data Labs 01/30/25 03:56 OB - PN A/P Plan day: 2 Plan: routine care and discharge home Time Spent With Patient Time: Total time spent is greater than 50% in coordination of care (as documented) at patient's floor/unit and/or counseling patient: Exam 2 : Bimanual exam- vagina & uterus: other (Uterus firm, nt @U)
--- NOTE | 2025-01-31 07:56 | P.DS_ITS ---
DS: Admitting Diagnosis Discharge Date 01/31/25 Admitting Diagnosis IUP 39 wks for MIL GDM uncontrolled DS: Discharge Diagnosis Discharge Diagnosis (1) (normal spontaneous vaginal delivery): Code(s): O80 - Encounter for full-term uncomplicated delivery Status: Acute OB - DS: Summary OB Procedures : Ultrasound OB Procedures Intrapartum: Spontaneous Vag Delivery OB Procedures: : None Peripartum Data Infant Delivery Method: Natural Vaginal Laceration Description: Periurethral and Perineal - 2nd Degree complications: none Status at Discharge Functional status at discharge: independent ambulation Overall status at discharge: patient is progressing back to baseline Time Spent with Patient Time attestation: Total time spent providing and/or coordinating discharge services: Discharge Plan Discharge Attending physician on discharge: Sofia Hull Discharging Clinician: Sofia Hull Anticipated Discharge Date/Time: 01/31/25 07:57 Patient Disposition: Home Activity: may shower and may drive after 2 weeks Diet: regular Patient Instructions: Antibiotic Form Patient Language: Latvian Stand Alone Forms: General Discharge Information Follow-up/Referrals: Sofia Hull MD [Physician, THERAPY COORDINATOR] - 6 Weeks Discharge Medications: New norethindrone (contraceptive) 0.35 mg tablet 0.35 mg PO DAILY Qty: 84 3RF Continued vit D3-vit K2-ca fructoborate 20 mcg-180 mcg- 216 mg tablet PO PNV no.95-ferrous fumarate-FA [] 28 mg iron- 800 mcg tablet 1 tablet PO DAILY levothyroxine [Euthyrox] 75 mcg tablet 75 mcg PO ONCE Date of admission: 01/29/25 05:58 Primary Care Provider: PHYSICIAN,MECHANICAL ENGINEERING SPECIALIST Admitting Provider: Sofia Hull Attending physician on admission: Sofia Hull Condition: Stable
--- NOTE | 2025-01-31 07:59 | P.PCNOB_ITS ---
OB - Vaginal Delivery Note Procedure Delivery date: 01/31/25 Events: Gestational Diabetes Induction method: AROM and Per Pitocin Protocol Delivery monitor: External FHT and External Uterine Route of delivery: Episiotomy description: None Laceration Description: Periurethral and Perineal - 2nd Degree Delivery repair: vicryl (3-0) Specimen: No Quantitative Blood Loss (ml): 150 Anesthesia type: Epidural Disposition: Floor Complications: No immediate complications [place] Baby Date of : 01/29/25 Gestational Age by Date: 39 Infant gender: Male presentation: vertex position: Right Occiput Anterior Placenta delivery description: Spontaneous Cord Vessel Description: 3 Vessels, Nuchal Cord and Delayed Cord Clamping
[2025-01-31] MEDS: DOCUSATE SODIUM 100 MG CAPSULE PO (08:45)
[2025-01-31] MEDS: MULTIVIT/MIN/PREN/FOL AC/IRON TABLET 1 TAB PO (08:45)
[2025-01-31] MEDS: ACETAMINOPHEN 325 MG TABLET 650 MG PO (08:45)
[2025-01-31] MEDS: IBUPROFEN 600 MG TABLET PO (08:45)
--- NOTE | 2025-01-31 14:53 | PC.NURSE ---
1100. is greater than 24 hours old and has not fed effectively at breast. Initiated a feeding plan for with a provider order for formula supplementation. Mother is instructed to pump (with a hospital pump or her pump from home) after every or attempt. Mother should only attempt for 10-15 minutes at breast before moving on to supplementation. Support person can feed baby 15ml of pumped milk or formula while mother is pumping. Instructed parents on keeping breastmilk at the bedside until the next feeding or for up to 4 hours. Patient was given breastmilk storage bottles, patient labels, and instructed to date and time all pumped milk. Breast pump instructions given on cleaning, care, usage, that there should be no pain, pumping schedule for milk production, collection, and storage of human milk. Patient was assessed for correct placement, flange size, to pump for adequate milk production every 3 hours and 1-2 times at night (8 times in 24 hours). Assisted mother latching to the right breast in cross cradle position. was not able to maintain an appropriate latch. Mother declines nipple pain/discomfort throughout feeding. We attempted to give 5cc of formula, which he took well. was then offered the breast again to attempt to relatch. was able to latch and feed for 10min at the breast. Encouraged mother to keep infant awake and nursing at the breast for as long as baby desires. Mother taught to listen for infant swallowing during feedings. Reviewed using the blue feeding sheet to record time and duration of feeding. Mother voiced understanding of the education shared, to call for assistance if the does not latch or if there is discomfort with . name/number on communication board. Reported to the Primary RN.? Reported to Primary RN.?
[2025-02-02 09:34] VITALS: BP 125/72; PULSE 78; RESP 18; TEMP 36.7; O2SAT 100
== END 2025-01-31 20:15 | disposition home or self-care (01) | DRG 807 ==
LOC: ANHLDR 05:59 → ANHOB2 19:48
PROVIDERS: Admitting Provider Obstetrics & Gynecology Gynecology; Visit Provider Obstetrics & Gynecology Gynecology
DX: O24.429 Gestational diabetes mellitus in childbirth, unspecified control (principal); Z37.0 Single live birth; Z3A.39 39 weeks gestation of pregnancy; O70.1 Second degree perineal laceration during delivery; O71.82 Other specified trauma to perineum and vulva; O69.81X0 Labor and delivery complicated by cord around neck, without compression, not applicable or unspecified
CPT/HCPCS: 36415; 82948; 85014; 85018; 85025; 86593; 86850; 86900; 86901; A9270; J2590; J2795; J3010; J7120